=== PATIENT | female | born 1995 | race Caucasian/White ===

== ENCOUNTER 2016-12-07 08:07 | Emergency (ER) | payer OTHER ==
--- NOTE | 2016-12-07 09:20 | ED ---
Abdominal Pain/Female - HPI Summary HPI Summary: Patient presents with abdominal pain she awoke with this morning. She was well yesterday. This morning her pain was in the RLQ and around the belly button. Her appetite is suppressed and she denies nausea. She has a history of ovarian torsion two years ago. She has her appendix. She denies fever, N/V/D or back pain. - History of Current Complaint Chief Complaint: EDAbdPain Stated Complaint: LOWER RT ABD PAIN Time Seen by Provider: 12/07/16 08:34 Hx Obtained From: Patient ?: No Onset/Duration: Gradual Onset Timing: Constant Severity Initially: Moderate Severity Currently: Moderate Pain Intensity: 4 Location: Discrete At: RLQ Radiates: No Character: Sharp Aggravating Factor(s): Movement Alleviating Factor(s): Nothing Associated Signs and Symptoms: Positive: Constipation, Decreased Appetite Allergies/Adverse Reactions: Allergies Allergy/AdvReac Type Severity Reaction Status Date / Time No Known Allergies Allergy Verified 03/15/16 09:51 PMH/Surg Hx/FS Hx/Imm Hx Endocrine/Hematology History: Denies: Hx Diabetes Cardiovascular History: Denies: Hx Hypertension, Hx Pacemaker/ICD Respiratory History: Denies: Hx Asthma History: Reports: Other Problems/Disorders - Hx ovarian torsion Sensory History: Denies: Hx Hearing Aid Psychiatric History: Denies: Hx Panic Disorder - Surgical History Surgery Procedure, Year, and Place: WISDOM TEETH,OVARIAN CYST AND TORSION REPAIR OV [facility] Infectious Disease History: No Infectious Disease History: Denies: Traveled Outside the [place] in Last 30 Days - Family History Known Family History: Positive: None - Social History Occupation: 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 Negative: Vomiting, Diarrhea, Nausea Positive: no symptoms reported All Other Systems Reviewed And Are Negative: Yes Physical Exam Triage Information Reviewed: Yes Vital Signs On Initial Exam: Initial Vitals Temp Pulse Resp BP Pulse Ox 97.3 F 74 20 130/77 100 12/07/16 08:11 12/07/16 08:11 12/07/16 08:11 12/07/16 08:11 12/07/16 08:11 Vital Signs Reviewed: Yes Appearance: Positive: Well-Appearing, Well-Nourished, Pain Distress Skin: Positive: Warm, Skin Color Reflects Adequate Perfusion, Dry, Soft Head/Face: Positive: Normal Head/Face Inspection Eyes: Positive: EOMI, RASHEL, Conjunctiva Clear ENT: Positive: Hearing grossly normal Neck: Positive: Supple, Nontender, No Lymphadenopathy Respiratory/Lung Sounds: Positive: Clear to Auscultation, Breath Sounds Present Cardiovascular: Positive: RRR Abdomen Description: Positive: Soft, Guarding, McBurney's Point Tenderness. Negative: Nontender - TTP RLQ and periumbilical region, CVA Tenderness (R), CVA Tenderness (L), Distended Bowel Sounds: Positive: Hypoactive Musculoskeletal: Negative: Edema Left, Edema Right Neurological: Positive: Sensory/Motor Intact, Alert, Oriented to Person Place, Time, NV Bundle Intact Distally Psychiatric: Positive: Affect/Mood Appropriate AVPU Assessment: Alert Diagnostics - Vital Signs Vital Signs Temp Pulse Resp BP Pulse Ox 12/07/16 08:12 97.8 F 85 20 130/77 100 12/07/16 08:11 97.3 F 74 20 130/77 100 - Laboratory Result Diagrams: 12/07/16 09:12 12/07/16 09:12 Lab Statement: Any lab studies that have been ordered have been reviewed, and results considered in the medical decision making process. - Ultrasound No standard instances Ultrasound Interpretation: No Acute Changes Ultrasound Interpretation Completed By: Radiologist Abdominal Pain Fem Course/Dx - Diagnoses Differential Diagnosis: Positive: Appendicitis, Bowel Obstruction, Constipation , Ectopic , Ovarian Cyst, , Urinary Tract Infection Provider Diagnoses: Abdominal pain Discharge - Discharge Plan Condition: Stable Disposition: HOME Patient Education Materials: Abdominal Pain (ED) Referrals: Zoey Patel DO [Primary Care Provider] - Additional Instructions: Please continue to monitor yourself for symptoms. Return to the emergency department if symptoms worsen.
[2016-12-07 09:22] LABS: Hematocrit 37 % (35-47); Mean Corpuscular HGB Conc 33 g/dl (31-36); Mean Corpuscular Hemoglobin 27 pg (27-31); Mean Corpuscular Volume 82 fL (80-97); Mean Platelet Volume 8 um3 (7.4-10.4); Red Blood Count 4.47 10^6/ul (4.0-5.4); Red Cell Distribution Width 13 % (10.5-15)
[2016-12-07 09:24] LABS: Urine Bilirubin Negative (Negative); Urine Glucose Negative (Negative); Urine Nitrite Negative (Negative)
[2016-12-07 09:44] LABS: ALT 14 U/L (7-52); AST 17 U/L (13-39); Albumin 4.1 g/dL (3.2-5.2); Alkaline Phosphatase 60 U/L (34-104); Amylase 61 U/L (29-103); Anion Gap 6 mmol/L (2-11); BUN/Creatinine Ratio 16.9 (8-20); Blood Urea Nitrogen 11 mg/dL (6-24); C Reactive Protein < 1.00 mg/L (< 5.00); CO2 Carbon Dioxide 25 mmol/L (22-32); Chloride 106 mmol/L (101-111); EGFR African American 149.4 (>60); EGFR Non-African American 116.2 (>60); Globulin 2.7 g/dL (2-4); Glucose 88 mg/dL (70-100); Lipase 23 U/L (11.0-82.0); Potassium 3.5 mmol/L (3.5-5.0); Sodium 137 mmol/L (133-145); Total Protein 6.8 g/dL (6.4-8.9)
--- NOTE | 2016-12-07 09:59 | RAD ---
INDICATION: Right lower quadrant pain COMPARISON: Similar examination dated May 29, 2016 that demonstrated 2 large cystic structures in the right ovary. TECHNIQUE: Real-time transabdominal and transvaginal ultrasound examination of the female pelvis including grayscale and Doppler color flow imaging. FINDINGS: Uterus: The uterus is normal in size and echogenicity measuring 7.8 x 2.9 x 4.5 cm. The endometrial stripe is smooth and uniform measuring 8 mm in thickness. Ovaries: The right and left ovary measure 3.6 x 2.8 x 3.1 cm and 4.0 x 2.7 x 4.3 cm, respectively. Normal arterial and venous waveforms are identified. Within the left ovary there is a large anechoic and avascular cystic structure measuring 6.7 cm in greatest dimension. There is no free fluid in the cul-de-sac. IMPRESSION: Large left ovarian cyst measuring up to 6.7 cm in diameter that is likely a large ovarian follicle in a woman of this age. The patient had similar findings at the right ovary on her May 29, 2016 pelvic sonogram that have since resolved.
[2016-12-07 10:37] VITALS: BP 127/79
== END 2016-12-07 10:30 | disposition home or self-care (01) ==
LOC: ED 08:07
DX: R10.31 Right lower quadrant pain (principal); N83.202 Unspecified ovarian cyst, left side; F12.90 Cannabis use, unspecified, uncomplicated
CPT/HCPCS: 36415; 76830; 80053; 81003; 82150; 83690; 85025; 86140; 99283

== ENCOUNTER 2017-07-27 14:39 | Emergency (ER) | payer OTHER ==
--- OUTSIDE RECORDS SUMMARY | 2017-07-27 15:14 | XMS REPORT ---
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 1 older brother has a history of substance abuse, and recently out of rehab. Social History Type Date Description Comments Marital Status Single Lives With Roommate Occupation Student Cigarette Use Never Smoked Cigarettes ETOH Use Occasionally consumes alcohol Smoking Patient has never smoked Recreational Drug Use Denies Drug Use Daily Caffeine Consumes on average 1 cup of green tea every other day hot tea per day Exercise Type/Frequency Exercises regularly run twice weekly, and weight lifting Allergies, Adverse Reactions, Alerts Date Description Reaction Status Severity Comments 06/19/2017 NKDA active Medications Medication Date Status Form Strength Qnty SIG Indications Ordering Provider Nuvaring Active Ring 0.12-0.015 insert 1 Unknown 000 mg/24HR ring vaginally every [address] for 3 weeks , remove and replace with a new ring after a 7 day break Vitamin D Active Tablets 1000Unit 1 every day Unknown (Cholecalcife 000 rol) Vitamin B12 Active Tablets ER 1000mcg 1 by mouth Unknown 000 every day Vital Signs Date Vital Result Comment 07/09/2017 Height 67.75 inches 5'7.75" Heart Rate 70 /min BP Systolic Sitting 118 mmHg lue reg cuff BP Diastolic Sitting 82 mmHg lue reg cuff Respiratory Rate 18 /min Ejection Fraction no echo/ss Results Description No Information Procedures Description No Information Plan of Care 07/09/2017 - Rich Deisr M.D.Q27.31 Arteriovenous malformation of vessel of upper limbNew Labs:Basic Metabolic PanelNew Xrays:Angio Extremity UnilateralComments:The following was discussed with Vanna at the time of consultation: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 The recent MRI does not clearly depict what, if any, branch arteries are directly communicating with the veins or the palpable nidus she presents with.As I discussed with Vanna, the definitive means of carefully evaluating the right upper extremity vasculature is with arteriography. This will clearly delineate the arterial supply to the right upper extremity and likely reveal any large branch arteries that are communicated directly with the superficial veins or the likely subcutaneous hemangiomas that she currently presents with.The results of the arteriogram will determine the appropriate therapy which could include coil embolization of the feeding branch artery, either endovascular or percutaneous embolization of the subcutaneous hemangiomas and varicose veins or , less likely, surgical correction.The patient is from [place], approximately [place] minutes from [place], and therefore I mentioned to her Dr. Shanika Moore at [facility]. Dr. Moore has extensive experience with vascular malformation correction asthe director of [facility]'s HHT (hereditary hemorrhagic telangiectasia) Center.
[2017-07-27] MEDS ORDERED: Dexamethasone IV* 4 MG/ML 1 ML (4 MG) IV SLOW PU ONE (15:31)
[2017-07-27] MEDS ORDERED: Clindamycin 900 MG IVPREMIX(* 900 MG/50 ML SDV IV ONE (15:37)
[2017-07-27] MEDS ORDERED: Ketorolac INJ* 30 MG/ML 1 ML VIAL IV PUSH ONE (15:38)
--- NOTE | 2017-07-27 15:49 | ED ---
Throat Pain/Nasal Congestion - HPI Summary HPI Summary: Patient is an otherwise healthy 21-year-old female who presents to the ED with chief complaint of bilateral tonsillar swelling, odynophagia, dysphagia, dyspnea and difficulty swallowing secretions 3 days. She states symptoms have started on Friday night, but have worsened in the last 3 days. She was able to call her PCP who referred her to the emergency room for evaluation. History of strep throat as early as last year. Strep swab obtained at [facility] and negative. She endorses bilateral white and black tonsillar exudates. She is tearful on exam due to her shortness of breath and pain. She has been trying to take Tylenol without relief. Continues to drink okay, but has not been eating well due to the pain and swelling. She denies any significant health history. Endorses travel as early as last month to [facility], but has felt at baseline since her travels. She denies any fevers, sweats, chills. She also feels her eyes hurt and are swollen. - History of Current Complaint Chief Complaint: EDThroatPain Time Seen by Provider: 07/27/17 15:32 Hx Obtained From: Patient Onset/Duration: Sudden Onset Severity: Severe Associated Signs And Symptoms: Positive: Dysphagia. Negative: Drooling, Hoarseness, Sinus Discomfort, Nasal Discharge - Epiglottits Risk Factors Epiglottis Risk Factors: Muffled Voice - Allergies/Home Medications Allergies/Adverse Reactions: Allergies Allergy/AdvReac Type Severity Reaction Status Date / Time No Known Allergies Allergy Verified 07/27/17 15:02 PMH/Surg Hx/FS Hx/Imm Hx Previously Healthy: Yes Endocrine/Hematology History: Denies: Hx Diabetes Cardiovascular History: Denies: Hx Hypertension, Hx Pacemaker/ICD Respiratory History: Denies: Hx Asthma History: Reports: Other Problems/Disorders - Hx ovarian torsion Sensory History: Denies: Hx Hearing Aid Psychiatric History: Denies: Hx Panic Disorder - Surgical History Surgery Procedure, Year, and Place: OVARIAN CYST REMOVAL BILATERALLY,WISDOM TEETH - Immunization History Hx Pertussis Vaccination: No Immunizations Up to Date: Unable to Obtain/Confirm Infectious Disease History: No Infectious Disease History: Denies: Traveled Outside the [place] in Last 30 Days - Family History Known Family History: Positive: None - Social History Occupation: Student Lives: With Family Alcohol Use: Occasionally Hx Substance Use: Yes Substance Use Type: Reports: Marijuana Substance Use Comment - Amount & Last Used: occasional Hx Tobacco Use: No Smoking Status (MU): Never Smoked Tobacco Review of Systems - ROS Summary Review of Systems Summary: Constitutional: The patient denies fever, CLEANING, sweats or chills. HEENT: Head: The patient denies headaches or dizziness. Eyes: The patient denies diplopia, blurry vision, eye pain, or photophobia. Endorses slight tearing and feels there is swelling under her eyes. Throat: The patient endorses bilateral and posterior pharyngeal and tonsillar pain. White and black exudates. Cardiovascular: The patient denies chest pain, palpitations, syncope, night cramps, or orthostasis. Respiratory: The patient denies cough, sputum production, hemoptysis, wheezing. Endorses dyspnea. Gastrointestinal: The patient denies odynophagia, dysphagia, hematemesis, melenemesis. Denies abdominal pain, nausea or vomiting. Denies constipation or diarrhea. Genitourinary: Patient denies dysuria, hematuria, or pyuria. Patient denies back pain. Denies vaginal discharge, vaginal bleeding. Denies other urinary symptoms. Muscles: The patient denies myalgia, strain or weakness. Joints: The patient denies arthralgia and/or arthritis. Neurologic: The patient denies headache. Psych: Endorses some anxiety related to dyspnea.. Constitutional: Negative Negative: Fever, Chills, Fatigue Positive: Sore Throat, Other - bilateral lymphadenopathy Cardiovascular: Negative Respiratory: Negative Positive: no symptoms reported, see HPI Musculoskeletal: Negative Neurological: Negative Positive: Anxious All Other Systems Reviewed And Are Negative: Yes Physical Exam - Summary Physical Exam Summary: Appearance: WDW, comfortable, pleasant, alert Skin: Soft dry skin, no lesions. Nailbeds pink with no cyanosis or clubbing. No petechia noted. Eyes: RASHEL, EOMI, Conjunctiva pink with no redness or exudates. Small amount of periorbital swelling to the bilateral eyes. Throat: There is bilateral tonsillar exudates, both black and white. Enlarged tonsils +3 bilaterally. Uvula midline. Airway patent. Mouth: Dentition without lesions. Dry mucosa Neck: Full range of motion. Palpable thyroid. Trachea at midline. Cervical lymphadenopathy. Pulm: Chest symmetrical expansion. No deformities on posterior chest wall. Lungs clear to auscultation and percussion, without adventitious sounds. CV: No JVD. No deformities on anterior chest wall. Heart sounds. RRR. Normal S1 and single S2. No S3, S4, rubs, or murmurs. Carotids 2+ bilaterally without bruits. . exam not performed GI: Bowel sounds WNL in all 4 quadrants. No pain on deep palpation of all 4 quadrants. Negative bonilla's, negative obturator. Psoas not performed. No pain over Mcburney's point. Musculoskeletal: Flexion and extension of neck without limitations. ROM WNL in all extremities. No deformities noted. Pulses +2 bilaterally. Neuro: Motor strength is 5/5 in upper and lower extremities bilaterally. A&OX3 Psych: Logical, coherent Triage Information Reviewed: Yes Vital Signs On Initial Exam: Initial Vitals Temp Pulse Resp BP Pulse Ox 98.2 F 119 20 134/83 100 07/27/17 14:57 07/27/17 14:57 07/27/17 14:57 07/27/17 14:57 07/27/17 14:57 Vital Signs Reviewed: Yes Appearance: Positive: Well-Appearing, Well-Nourished Skin: Positive: Warm, Skin Color Reflects Adequate Perfusion Head/Face: Positive: Normal Head/Face Inspection Eyes: Positive: EOMI, RASHEL, Other: - Small amount of periorbital swelling, without erythema or concern for periorbital cellulitis ENT: Positive: Hearing grossly normal, Pharyngeal erythema, TMs normal, Tonsillar swelling, Tonsillar exudate, Muffled voice, Uvula midline. Negative: Nasal congestion, Nasal drainage, Trismus, Hoarse voice, Dental tenderness, Sinus tenderness Neck: Positive: Supple, Tenderness @ - Cervical anterior, Enlarged Nodes @ - Cervical anterior, Other: - Tenderness throughout lymph nodes, without tenderness to the neck. Negative: Nontender, Nuchal Rigidity Cardiovascular: Positive: Normal, RRR Musculoskeletal: Positive: Normal, Strength/ROM Intact Psychiatric: Positive: Anxious - Anxious regarding her current state AVPU Assessment: Alert Diagnostics - Vital Signs Vital Signs Temp Pulse Resp BP Pulse Ox 07/27/17 14:57 98.2 F 119 20 134/83 100 - Laboratory Result Diagrams: 07/27/17 16:06 07/27/17 16:06 Lab Statement: Any lab studies that have been ordered have been reviewed, and results considered in the medical decision making process. EENT Course/Dx - Course Course Of Treatment: During the course of treatment, the patient is evaluated for throat pain. On physical exam there is noted to be tonsillitis with white and black exudates and pharyngeal erythema. Tonsils are enlarged at +3. She maintains her saliva secretions, but is having difficulty swallowing food. Uvula is midline. No signs of peritonsillar abscess. On arrival she appears anxious but is not drooling or posturing. She has somewhat of a muffled or a hot potato voice. Denies trismus. The pain is bilateral and uvula is midline for less concern for peritonsillar. There is no signs of a deep space neck infection, or abscess in the parapharyngeal space. There is no bulging behind the posterior tonsillar pillar. It appears this may be severe tonsillopharyngitis with bilateral tonsillar swelling and exudate. cervical lymphadenopathy bilateral is noted. Likely this pathogen is caused by mononucleosis from EBV, but until cultures are back we'll treat for bacterial component as well. Monoscreen negative. Reactive lymphs elevated. She is given clindamycin, prednisone. She is OK with plan and discharge and feels improved on discharge. She is given strict return precautions. - Diagnoses Provider Diagnoses: Acute tonsillitis Discharge - Discharge Plan Condition: Fair Disposition: HOME Prescriptions: Clindamycin Cap(NF) [Clindamycin Cap 300 mg Cap(NF)] 300 mg PO Q6H #28 cap predniSONE TAB* [Deltasone TAB*] 50 mg PO DAILY #6 tab Patient Education Materials: Tonsillitis (ED) Referrals: Zoey Patel DO [Primary Care Provider] - Additional Instructions: Please follow up with ENT for any worsening symptoms Prednisone 50 mg once daily 6 days Clindamycin 300 mg 4 times daily 7 days If you develop symptoms as in your not swallowing her secretions or having any difficulty breathing, return to the ED immediately Cepacol tabs, [id number] will help with any pain Tylenol 650 mg 3 times daily for discomfort
[2017-07-27] MEDS ORDERED: D5NS 0.9% 1000 ML BAG* 1,000 ML IV SCH (16:00)
[2017-07-27 16:20] LABS: Hematocrit 39 % (35-47); Hemoglobin 12.7 g/dl (12.0-16.0); Mean Corpuscular HGB Conc 33 g/dl (31-36); Mean Corpuscular Hemoglobin 26 pg (27-31); Mean Corpuscular Volume 81 fL (80-97); Mean Platelet Volume 8 um3 (7.4-10.4); Platelet Count 207 10^3/ul (150-450); Red Blood Count 4.81 10^6/ul (4.0-5.4); Red Cell Distribution Width 15 % (10.5-15); White Blood Count 9.4 10^3/ul (3.5-10.8)
[2017-07-27 16:31] LABS: EGFR Non-African American 129.9 (>60)
[2017-07-27 16:49] LABS: Monocytes % 9 % (0-13)
[2017-07-27 18:15] VITALS: BP 119/74
== END 2017-07-27 18:13 | disposition home or self-care (01) ==
LOC: ED 14:39
DX: J03.90 Acute tonsillitis, unspecified (principal)
CPT/HCPCS: 36415; 80053; 83605; 85025; 85060; 85652; 86140; 86308; 96374; 96375; 99281; J1100; J1885

== ENCOUNTER 2017-11-01 01:37 | Emergency (ER) | payer OTHER ==
[2017-11-01 02:30] LABS: ABS Basophils 0 10^3/ul (0-0.2); ABS Eosinophils 0.1 10^3/ul (0-0.6); ABS Lymphocytes 3.5 10^3/ul (1.0-4.8); ABS Monocytes 0.8 10^3/ul (0-0.8); ABS Neutrophils 3.3 10^3/ul (1.5-7.7); ABS Nucleated RBC 0 10^3/ul; Eosinophil % 1.6 % (0-6); Hematocrit 33 % (35-47); Hemoglobin 10.6 g/dl (12.0-16.0); Lymphocyte % 45.2 % (25-47); Mean Corpuscular HGB Conc 32 g/dl (31-36); Mean Corpuscular Hemoglobin 26 pg (27-31); Mean Corpuscular Volume 80 fL (80-97); Mean Platelet Volume 7.5 um3 (7.4-10.4); Nucleated Red Blood Cells % 0.1; Platelet Count 324 10^3/ul (150-450); Red Blood Count 4.12 10^6/ul (4.0-5.4); Red Cell Distribution Width 15 % (10.5-15); White Blood Count 7.8 10^3/ul (3.5-10.8)
[2017-11-01 02:48] LABS: EGFR Non-African American 131.2 (>60)
[2017-11-01 02:51] LABS: Urine Appearance Cloudy; Urine Blood 3+ (Negative); Urine Color Yellow; Urine Ketones Negative (Negative); Urine Protein Negative (Negative); Urine Specific Gravity 1.024 (1.010-1.030); Urine Urobilinogen Negative (Negative)
[2017-11-01] MEDS ORDERED: NS 0.9% 1000 ML* 1,000 ML IV ONE (03:06)
[2017-11-01] MEDS ORDERED: Ketorolac INJ* 30 MG/ML 1 ML VIAL IV PUSH ONE (03:06)
[2017-11-01] MEDS ORDERED: Iohexol 300* (CONTRAST) 10 ML SDV IV ONE (03:52)
[2017-11-01 06:00] VITALS: BP 115/66
--- NOTE | 2017-11-01 06:48 | ED ---
Sam Viera Jennifer, scribed for Librado Logan MD on 11/01/17 at 0226 . Abdominal Pain/Female - HPI Summary HPI Summary: The patient is a 22 year old female who presents with diffuse abdominal pain that began at 18:00 last night. She explains that it felt like her upper abdomen began to feel very full. The patient reports she has a history of ovarian cyst and torsion, but this pain feels different and higher up. She describes it as a sharp pain. The patient additionally complains of constipation. Her last bowel movement was this morning. She denies vomiting, diarrhea, fever, and vaginal discharge. - History of Current Complaint Chief Complaint: EDAbdPain Stated Complaint: ABD PAIN Time Seen by Provider: 11/01/17 02:01 Hx Obtained From: Patient Onset/Duration: Sudden Onset, Lasting Hours - 8 hours, Still Present Timing: Constant Severity Initially: Moderate Severity Currently: Moderate Pain Intensity: 6 Pain Scale Used: 0-10 Numeric Location: Diffuse Radiates: No Character: Sharp Aggravating Factor(s): Nothing Alleviating Factor(s): Nothing Associated Signs and Symptoms: Positive: Other: - abdominal pain, constipation. NEGATIVE: vomiting, diarrhea, fever, discharge Allergies/Adverse Reactions: Allergies Allergy/AdvReac Type Severity Reaction Status Date / Time No Known Allergies Allergy Verified 11/01/17 01:42 Home Medications: Home Medications NK [No Home Medications Reported] 11/01/17 [History Confirmed 11/01/17] PMH/Surg Hx/FS Hx/Imm Hx Endocrine/Hematology History: Denies: Hx Diabetes Cardiovascular History: Denies: Hx Hypertension, Hx Pacemaker/ICD Respiratory History: Denies: Hx Asthma History: Reports: Other Problems/Disorders - Hx ovarian torsion Sensory History: Denies: Hx Hearing Aid Psychiatric History: Denies: Hx Panic Disorder - Surgical History Surgery Procedure, Year, and Place: OVARIAN CYST REMOVAL BILATERALLY,WISDOM TEETH Infectious Disease History: No Infectious Disease History: Denies: Traveled Outside the [place] in Last 30 Days - Family History Known Family History: Negative: Cardiac Disease, Hypertension, Diabetes - Social History Alcohol Use: Occasionally Hx Substance Use: Yes Substance Use Type: Reports: Marijuana Substance Use Comment - Amount & Last Used: occasional Hx Tobacco Use: No Smoking Status (MU): Never Smoked Tobacco Review of Systems Negative: Fever Positive: Abdominal Pain, Other - Constipation. Negative: Vomiting, Diarrhea Negative: discharge All Other Systems Reviewed And Are Negative: Yes Physical Exam - Summary Physical Exam Summary: GENERAL: ~Patient is a well developed and nourished F who is lying comfortable in the stretcher. ~Patient is not in any acute respiratory distress. HEAD AND FACE: Normocephalic EYES: PERRLA, EOMI x 2. EARS: Hearing grossly intact. MOUTH: Oropharynx within normal limits. NECK: Supple, trachea is midline, no adenopathy, no JVD, no carotid bruit. CHEST: Symmetric, no tenderness at palpation LUNGS: Clear to auscultation bilaterally. No wheezing or crackles. CVS: Regular rate and rhythm, S1 and S2 present, no murmurs or gallops appreciated. ABDOMEN: Soft, tender to palpation in right lower and right middle abdomen. Bowel sounds are normal. No abdominal abnormal pulsations. EXTREMITIES: Full ROM in all major joints, no edema, no cyanosis or clubbing. NEURO: Alert and oriented x 3. No acute neurological deficits. Speech is normal and follows commands. SKIN: Dry and warm Triage Information Reviewed: Yes Vital Signs On Initial Exam: Initial Vitals Temp Pulse Resp BP Pulse Ox 97.9 F 86 16 129/82 99 11/01/17 01:38 11/01/17 01:38 11/01/17 01:38 11/01/17 01:38 11/01/17 01:38 Vital Signs Reviewed: Yes Diagnostics - Vital Signs Vital Signs Temp Pulse Resp BP Pulse Ox 11/01/17 01:38 97.9 F 86 16 129/82 99 - Laboratory Lab Results: Lab Results 11/01/17 11/01/17 11/01/17 Range/Units 02:14 02:21 02:21 WBC 7.8 (3.5-10.8) 10^3/ul RBC 4.12 (4.0-5.4) 10^6/ul Hgb 10.6 L (12.0-16.0) g/dl Hct 33 L (35-47) % MCV 80 (80-97) fL MCH 26 L (27-31) pg MCHC 32 (31-36) g/dl RDW 15 (10.5-15) % Plt Count 324 (150-450) 10^3/ul MPV 7.5 (7.4-10.4) um3 Neut % (Auto) 42.0 (38-83) % Lymph % (Auto) 45.2 (25-47) % [place] % (Auto) 10.7 H (0-7) % Eos % (Auto) 1.6 (0-6) % Baso % (Auto) 0.5 (0-2) % Absolute Neuts (auto) 3.3 (1.5-7.7) 10^3/ul Absolute Lymphs (auto) 3.5 (1.0-4.8) 10^3/ul Absolute Monos (auto) 0.8 (0-0.8) 10^3/ul Absolute Eos (auto) 0.1 (0-0.6) 10^3/ul Absolute Basos (auto) 0 (0-0.2) 10^3/ul Absolute Nucleated RBC 0 10^3/ul Nucleated RBC % 0.1 Sodium 136 L (139-145) mmol/L Potassium 3.3 L (3.5-5.0) mmol/L Chloride 106 (101-111) mmol/L Carbon Dioxide 22 (22-32) mmol/L Anion Gap 8 (2-11) mmol/L BUN 10 (6-24) mg/dL Creatinine 0.58 (0.51-0.95) mg/dL Est GFR ( Amer) 168.8 (>60) Est GFR (Non-Af Amer) 131.2 (>60) BUN/Creatinine Ratio 17.2 (8-20) Glucose 109 H (70-100) mg/dL Lactic Acid (0.5-2.0) mmol/L Calcium 8.6 (8.6-10.3) mg/dL Total Bilirubin 0.20 (0.2-1.0) mg/dL AST 15 (13-39) U/L ALT 11 (7-52) U/L Alkaline Phosphatase 50 (34-104) U/L C-Reactive Protein 2.03 (< 5.00) mg/L Total Protein 6.0 L (6.4-8.9) g/dL Albumin 3.6 (3.2-5.2) g/dL Globulin 2.4 (2-4) g/dL Albumin/Globulin Ratio 1.5 (1-3) Lipase 43 (11.0-82.0) U/L Beta HCG, Quant < 0.60 mIU/mL Urine Color Yellow Urine Appearance Cloudy Urine pH 6.0 (5-9) Ur Specific [place] 1.024 (1.010-1.030) Urine Protein Negative (Negative) Urine Ketones Negative (Negative) Urine Blood 3+ A (Negative) Urine Nitrate Negative (Negative) Urine Bilirubin Negative (Negative) Urine Urobilinogen Negative (Negative) Ur Leukocyte Esterase Negative (Negative) Urine WBC (Auto) Trace(0-5/hpf) (Absent) Urine RBC (Auto) 3+(>10/hpf) A (Absent) Ur Squamous Epith Cells Present A (Absent) Urine Bacteria Absent (Absent) Urine Glucose Negative (Negative) 11/01/17 Range/Units 02:21 WBC (3.5-10.8) 10^3/ul RBC (4.0-5.4) 10^6/ul Hgb (12.0-16.0) g/dl Hct (35-47) % MCV (80-97) fL MCH (27-31) pg MCHC (31-36) g/dl RDW (10.5-15) % Plt Count (150-450) 10^3/ul MPV (7.4-10.4) um3 Neut % (Auto) (38-83) % Lymph % (Auto) (25-47) % [place] % (Auto) (0-7) % Eos % (Auto) (0-6) % Baso % (Auto) (0-2) % Absolute Neuts (auto) (1.5-7.7) 10^3/ul Absolute Lymphs (auto) (1.0-4.8) 10^3/ul Absolute Monos (auto) (0-0.8) 10^3/ul Absolute Eos (auto) (0-0.6) 10^3/ul Absolute Basos (auto) (0-0.2) 10^3/ul Absolute Nucleated RBC 10^3/ul Nucleated RBC % Sodium (139-145) mmol/L Potassium (3.5-5.0) mmol/L Chloride (101-111) mmol/L Carbon Dioxide (22-32) mmol/L Anion Gap (2-11) mmol/L BUN (6-24) mg/dL Creatinine (0.51-0.95) mg/dL Est GFR ( Amer) (>60) Est GFR (Non-Af Amer) (>60) BUN/Creatinine Ratio (8-20) Glucose (70-100) mg/dL Lactic Acid 1.0 (0.5-2.0) mmol/L Calcium (8.6-10.3) mg/dL Total Bilirubin (0.2-1.0) mg/dL AST (13-39) U/L ALT (7-52) U/L Alkaline Phosphatase (34-104) U/L C-Reactive Protein (< 5.00) mg/L Total Protein (6.4-8.9) g/dL Albumin (3.2-5.2) g/dL Globulin (2-4) g/dL Albumin/Globulin Ratio (1-3) Lipase (11.0-82.0) U/L Beta HCG, Quant mIU/mL Urine Color Urine Appearance Urine pH (5-9) Ur Specific [place] (1.010-1.030) Urine Protein (Negative) Urine Ketones (Negative) Urine Blood (Negative) Urine Nitrate (Negative) Urine Bilirubin (Negative) Urine Urobilinogen (Negative) Ur Leukocyte Esterase (Negative) Urine WBC (Auto) (Absent) Urine RBC (Auto) (Absent) Ur Squamous Epith Cells (Absent) Urine Bacteria (Absent) Urine Glucose (Negative) Result Diagrams: 11/01/17 02:21 11/01/17 02:21 Lab Statement: Any lab studies that have been ordered have been reviewed, and results considered in the medical decision making process. - CT CT Abd/Pel CT Interpretation: Positive (See Comments) - Cystic mass in the right adnexa is likely ovarian in origin. Correlation with history and pelvic exam is recommended. Pelvic ultrasound would be helpful for further evaluation. Nodular density in the left adnexa is likely related to the left ovary. Dr. Logan has reviewed this report. CT Interpretation Completed By: Radiologist - Additional Comments Diagnostic Additional Comments: Pelvic US. Interpreted by a radiologist. IMPRESSION: 6.7cm paraovarian cyst with no torsion. Dr. Logan has reviewed this report. Abdominal Pain Fem Course/Dx - Course Course Of Treatment: The patient is a 22 year old female who presents to the ED with diffuse abdominal pain that began at 18:[address] Abd/Pel is remarkable for a cystic mass seen on the right ovary. US Pelvic showed no torsion. I discussed the results with pt. She reports feeling better. The patient will be discharged and instructed to follow up with TESSIE. - Diagnoses Provider Diagnoses: Ovarian cyst Discharge - Sign-Out/Discharge Documenting (check all that apply): Discharge/Admit/Transfer - Discharge Plan Condition: Stable Disposition: HOME Patient Education Materials: Ovarian Cyst (ED) Referrals: Zoey Patel DO [Primary Care Provider] - Humza Messina MD [Medical Doctor] - Additional Instructions: Follow up with Dr. Messina (OBGYN) or your OBGYN in three days. Return to the emergency department for any new or worsening symptoms. - Billing Disposition and Condition Condition: STABLE Disposition: HOME The documentation as recorded by the Sam pires Jennifer accurately reflects the service I personally performed and the decisions made by me, Librado Logan MD.
--- NOTE | 2017-11-01 08:46 | RAD ---
Indication: Right lower quadrant pain. Contrast: Administered 95.3 ml of Contrast -- mg/ml CT of the abdomen and pelvis was performed after IV contrast administration. Coronal and sagittal reconstructed images were obtained. The lung bases demonstrate no pleural fluid, nodules or masses. Heart is of normal size without evidence of pericardial. Liver is normal in size. No focal lesions or intrahepatic duct dilatation noted. The spleen is normal in size. The common duct is not dilated. The gallbladder demonstrates no calcified gallstones. No pericholecystic fluid or wall thickening is noted. The pancreas demonstrates no mass or pancreatic ductal dilatation. No adrenal masses are noted. The kidneys demonstrate no hydronephrosis. No retroperitoneal lymphadenopathy is noted. No dilated loops of bowel are noted. CT of the pelvis demonstrates normal appendix. There is a large right adnexal cyst measuring up to 6.7 x 5.5 cm. The left ovary is unremarkable. No hernias are noted. IMPRESSION: Cystic lesion in the right adnexa measuring up to 6left ovary is likely within normal limits. Correlation with pelvic ultrasound is suggested.
--- NOTE | 2017-11-01 08:56 | RAD ---
Indication: Cystic lesion seen on CT. Real-time sonography of the pelvis was performed. Comparison is made with previous exam dated 12/07/2016 and 05/29/2016. The uterus measures at least 8 cm in length x 4.9 cm with x 3.1 cm AP. Endometrial echo measures 8 mm. This is within normal limits. The right ovary measures 3.2 x 3.1 x 2.5 cm. The right ovary is a large cyst measuring 6.8 x 6.7 x 4.8 cm. The left ovary measures 3.6 x 2.8 x 4.3 cm. Doppler interrogation demonstrates flow in both ovaries. There has been a large paraovarian structure since previous exam of May 29, 2016 and the possibility of cystadenoma should BE considered. IMPRESSION: Large right ovarian cyst measuring up to 6.8 x 6.7 x 4.8 cm which has likely been present as far back as May 2016. No torsion is noted. The possibility of a cystadenoma should BE considered.
== END 2017-11-01 06:46 | disposition home or self-care (01) ==
LOC: ED 01:37
DX: N83.209 Unspecified ovarian cyst, unspecified side (principal)
CPT/HCPCS: 36415; 74177; 76830; 76856; 80053; 81003; 81015; 83605; 83690; 84702; 85025; 86140; 87086; 96361; 96374; 99282; J1885; Q9967

== ENCOUNTER → 2018-03-27 06:51 | Day surgery (SDC) | payer OTHER ==
[~2018-03-27 06:51] MED LIST: Heparin 2 UNITS/ML IVPREMIX* 2,000 ML IV ONE; Iohexol 350 (CONTRAST) 200 ML MDV IV ONE; LORazepam TAB(*) 1 MG ONE; Lidocaine 1% INJ* 10 MG/ML 30 ML SDV ONE; Midazolam* 1 MG/ML 10 ML VIAL (10 MG) ONE; Naloxone* 0.4 MG/ML 1 ML VIAL ONE; fentaNYL* 50 MCG/ML 2 ML VIAL (100 MCG VIAL) ONE; fentaNYL* 50 MCG/ML 5 ML VIAL (250 MCG VIAL) ONE
[2018-03-27 07:35] LABS: Hematocrit 35 % (35-47); Hemoglobin 11.3 g/dl (12.0-16.0); Mean Corpuscular HGB Conc 33 g/dl (31-36); Mean Corpuscular Hemoglobin 26 pg (27-31); Mean Corpuscular Volume 80 fL (80-97); Mean Platelet Volume 7.7 um3 (7.4-10.4); Platelet Count 359 10^3/ul (150-450); Red Blood Count 4.32 10^6/ul (4.00-5.40); Red Cell Distribution Width 14 % (10.5-15); White Blood Count 7.2 10^3/ul (3.5-10.8)
[2018-03-27 07:43] LABS: INR 0.86 (0.77-1.02)
[2018-03-27 07:51] LABS: EGFR Non-African American 128.7 (>60)
[2018-03-27 08:05] LABS: ABS Basophils 0 10^3/ul (0-0.2); ABS Eosinophils 0.2 10^3/ul (0-0.6); ABS Monocytes 0.6 10^3/ul (0-0.8); ABS Neutrophils 2.3 10^3/ul (1.5-7.7); ABS Nucleated RBC 0 10^3/ul; Eosinophil % 2.7 % (0-6); Lymphocyte % 56.3 % (25-47); Nucleated Red Blood Cells % 0.3
[2018-03-27 12:42] VITALS: BP 119/71
--- NOTE | 2018-03-27 14:40 | PN ---
Progress Note - Progress Note Date of Service: 03/27/18 SOAP: Subjective: Mild pain at palmar surface of right middle finger proximal phalanx. No pain anywhere else. No paresthesia. Objective: Selected Entries 03/27/18 12:40 Pulse Rate 78 Heart Rate 75 Respiratory 17 Rate Blood Pressure 119/71 (mmHg) Blood Pressure 87 Mean O2 Sat by Pulse 96 Oximetry NAD, AAO x 3 Abd is soft, nontender Right groin is soft, nontender Dressing is CDI 2+ pulses palpated at right brachial, radial and ulnar arteries. 2+ pulses at right [employer] and pedal pulses. RUE is neuromuscular intact. Examination of middle finger shows mild erythema, no swelling, no discoloration Right middle finger exhibits <2 cap refill Assessment: 22 yof status thoracic and RUE arteriogram to investigate direct arterial inflow into RUE AVMs. Nonspecific mild pain at tenorio proximal right middle finger may be due to positioning on armboard. Plan: 1. Okay for discharge to home. 2. Patient provided contact information for Interventional Radiology clinic and my cell phone for any issues. 3. IR clinic nurse will inquirea about right middle finger during Friday, routine follow up call.
== END | disposition home or self-care (01) ==
LOC: CHICATH 06:51
PROVIDERS: ATTEND Radiology Diagnostic Radiology
DX: Q27.31 Arteriovenous malformation of vessel of upper limb (principal); M25.521 Pain in right elbow; I86.8 Varicose veins of other specified sites; E61.1 Iron deficiency; E55.9 Vitamin D deficiency, unspecified
CPT/HCPCS: 36415; 76937; 80048; 84702; 85025; 85610; 85730; 93567; 99156; 99157; A9270-GY; C1769; C1887; J1644; J2250; J2310; J3010

== ENCOUNTER 2018-03-28 01:17 | Emergency (ER) | payer OTHER ==
--- NOTE | 2018-03-28 01:57 | ED ---
Lower Extremity - HPI Summary HPI Summary: The patient is a 22 y/o F presenting to [facility] with a chief complaint of intermittent pain the back of her right knee starting since she left the hospital a few days ago. She fell three weeks ago and has since had pain in her leg. She additionally has been having numbness in her feet and fingertips. There is no swelling associated. The pain is currently rated 3/10 in severity. She uses Nuvaring control. - History of Current Complaint Chief Complaint: EDExtremityLower Stated Complaint: RT LEG PAIN Time Seen by Provider: 03/28/18 01:47 Hx Obtained From: Patient Mechanism Of Injury: Fall From A Standing Position - fell on right leg three weeks ago Onset of Pain: Post Accident Onset/Duration: Still Present Pain Intensity: 3 Pain Scale Used: 0-10 Numeric Timing: Intermittent Location: Is Discrete @ - back of right knee Associated Signs And Symptoms: Positive: Other - numbness in feet and fingertips. Negative: Swelling Aggravating Factor(s): Nothing Alleviating Factor(s): Nothing Able to Bear Weight: Yes - Allergies/Home Medications Allergies/Adverse Reactions: Allergies Allergy/AdvReac Type Severity Reaction Status Date / Time No Known Allergies Allergy Verified 03/28/18 01:27 PMH/Surg Hx/FS Hx/Imm Hx Endocrine/Hematology History: Denies: Hx Diabetes Cardiovascular History: Denies: Hx Hypertension, Hx Pacemaker/ICD Respiratory History: Denies: Hx Asthma History: Reports: Other Problems/Disorders - Hx ovarian torsion Sensory History: Denies: Hx Hearing Aid Psychiatric History: Denies: Hx Panic Disorder - Surgical History Surgery Procedure, Year, and Place: OVARIAN CYST REMOVAL BILATERALLY,WISDOM TEETH Infectious Disease History: No Infectious Disease History: Denies: Traveled Outside the [place] in Last 30 Days - Family History Known Family History: Negative: Cardiac Disease, Hypertension, Diabetes - Social History Alcohol Use: Occasionally Hx Substance Use: Yes Substance Use Type: Reports: Marijuana Substance Use Comment - Amount & Last Used: occasional Hx Tobacco Use: No Smoking Status (MU): Never Smoked Tobacco Review of Systems Positive: Other - POSITIVE: pain in back of right knee; NEGATIVE: swelling Positive: Numbness - in feet and fingertips All Other Systems Reviewed And Are Negative: Yes Physical Exam - Summary Physical Exam Summary: Appearance: Well-appearing, Well-nourished, lying in bed comfortable Skin: Warm, dry, no obvious rash Eyes: sclera anicteric, no conjunctival pallor ENT: mucous membranes moist Neck: deferred Respiratory: No signs of respiratory distress Cardiovascular: Appears well perfused, pulses are nml Abdomen: deferred Musculoskeletal: Moving all 4 extremities without obvious discomfort, Right lower extremity has no swelling, no focal tenderness in calf, no color change, good pulses are palpable in the dorsum of the foot Neurological: Awake and alert, mentation is normal, speech is fluent and appropriate Psychiatric: affect is normal, does not appear anxious or depressed Triage Information Reviewed: Yes Vital Signs On Initial Exam: Initial Vitals Temp Pulse Resp BP Pulse Ox 97.0 F 87 16 147/80 99 03/28/18 01:24 03/28/18 01:24 03/28/18 01:24 03/28/18 01:24 03/28/18 01:24 Vital Signs Reviewed: Yes Diagnostics - Vital Signs Vital Signs Temp Pulse Resp BP Pulse Ox 03/28/18 01:24 97.0 F 87 16 147/80 99 - Laboratory Lab Statement: Any lab studies that have been ordered have been reviewed, and results considered in the medical decision making process. Lower Extremity Course/Dx - Diagnoses Provider Diagnoses: Leg pain Discharge - Sign-Out/Discharge Documenting (check all that apply): Patient Departure - Patient will be discharged home. - Discharge Plan Condition: Good Disposition: HOME Patient Education Materials: Leg Pain (ED) Referrals: Zoey Patel DO [Primary Care Provider] - Additional Instructions: I have a very low suspicion that this pain represents anything serious such as a blood clot in the leg, but if the pain does not work itself out by the late morning, or you develop any swelling in the leg, come back to the ED and we will get a venous US test to rule out a blood clot. - Billing Disposition and Condition Condition: GOOD Disposition: Home - Attestation Statements Document Initiated by Summer: Yes Documenting Scribe: Carmelina Vaz Provider For Whom Summer is Documenting (Include Credential): Dr. Earl Wilson MD Scribe Attestation: Carmelina Viera, scribed for Dr. Earl Wilson MD on 03/28/18 at 0310. Scribe Documentation Reviewed: Yes Provider Attestation: The documentation as recorded by the Carmelina pires accurately reflects the service I personally performed and the decisions made by me, Dr. Earl Wilson MD
[2018-03-28 02:16] VITALS: BP 118/70
== END 2018-03-28 02:16 | disposition home or self-care (01) ==
LOC: ED 01:17
DX: M25.561 Pain in right knee (principal)
CPT/HCPCS: 99282

== ENCOUNTER 2018-04-28 15:11 | Emergency (ER) | payer OTHER ==
--- NOTE | 2018-04-28 16:01 | UC ---
Throat Pain/Nasal [place] HPI - HPI Summary HPI Summary: 22 yo female presents with dizziness, generalized "heaviness", and subjective trouble with her speech. She tells me that about 2 hours [employer] she had just eaten a tristen bar and was sitting in class. She had a sudden onset of dizziness, b/l leg weakness, and a feeling of body wide heaviness. She has never had symptoms like this in the past. Her symptoms have persisted prompting her visit to . She also endorses a sore throat that started this morning, but did not think it was significant. She denies recent illness, fever, chills, cough, SOB, chest pain, abdominal pain, n/v, dysuria, or headache. She also mentions that she has a hx of varicose veins to her right arm and underwent an arteriogram 1 month ago for further evaluation of these. - History of Current Complaint Stated Complaint: DIZZINESS Time Seen by Provider: 04/28/18 16:00 Hx Obtained From: Patient Onset/Duration: Sudden Onset - Allergies/Home Medications Allergies/Adverse Reactions: Allergies Allergy/AdvReac Type Severity Reaction Status Date / Time No Known Allergies Allergy Verified 04/28/18 17:21 PMH/Surg Hx/FS Hx/Imm Hx - Additional Past Medical History Additional PMH: None - Surgical History Surgical History: Yes Surgery Procedure, Year, and Place: OVARIAN CYST REMOVAL BILATERALLY,WISDOM TEETH - Family History Known Family History: Negative: Cardiac Disease, Hypertension, Diabetes - Social History Occupation: Student Lives: Dormitory/Roommates Alcohol Use: Occasionally Substance Use Type: Marijuana Substance Use Comment - Amount & Last Used: occasional Smoking Status (MU): Never Smoked Tobacco Review of Systems Constitutional: Negative Skin: Negative Eyes: Negative ENT: Sore Throat Respiratory: Negative Cardiovascular: Negative Gastrointestinal: Negative Genitourinary: Negative Motor: Negative Neurovascular: Negative Musculoskeletal: Negative Neurological: Other - Dizziness Psychological: Negative All Other Systems Reviewed And Are Negative: Yes Physical Exam - Summary Physical Exam Summary: GENERAL: Upper body mildly swaying in all directions during interview and PE. SKIN: No rashes, sores, ulcers, masses, lesions. HEENT: Head: AT/NC Eyes: PERRLA. EOM intact. Conjunctiva clear without inflammation or discharge. Ears: Hearing grossly normal. TMs intact, no bulging, erythema, or edema. Nose: Nasal mucosa pink and moist. NTTP maxillary and frontal sinus. Throat: Posterior oropharynx without exudates, erythema, or tonsillar enlargement. Uvula midline. NECK: Supple. Nontender. No lymphadenopathy. CHEST: CTAB. No r/r/w. No accessory muscle use. Breathing comfortably and in no distress. CV: RRR. Without m/r/g. Pulses intact. Brisk cap refill. ABDOMEN: Soft. NTTP. No distention or guarding. No CVA tenderness. Bowel sounds present MSK: FROM in B/L UEs and LEs with symmetric strength. NEURO: A&Ox3. 3 word recall, remote, recent memory, ability to follow 2-step directions, and attention intact. CN: II: Peripheral fang intact. Vision normal. III, IV, : EOMI. QUESTIONABLE VERTICAL NYSTAGMUS. PERRLA. V: Sensations intact and symmetric. Opens mouth and clenches teeth. VII: No facial asymmetry. Forehead wrinkles. Grins, shuts eyes, frowns, puffs cheeks. VIII: Hearing intact to finger rub. IX, X: Swallows and coughs. Uvula midline. XI: Shrugs shoulders. Turns head against resistance. XII: No tongue deviation Finger -to-nose are intact. Gait with normal base. Romberg: maintains balance, no pronator drift. Normal speech. No facial drooping. PSYCH: Age appropriate behavior. Triage Information Reviewed: Yes Vital Signs: Vital Signs: Temp Pulse Resp BP Pulse Ox 98.1 F 96 18 121/75 100 04/28/18 16:02 04/28/18 16:02 04/28/18 16:02 04/28/18 16:02 04/28/18 16:02 Laboratory Tests 04/28/18 04/28/18 16:47 16:48 POC Urine Color Yellow POC Urine Clarity Clear POC Urine pH 7.5 POC Ur Specif [place] 1.015 POC Urine Protein Negative POC Ur Glucose (UA) Negative POC Urine Ketones Negative POC Urine Blood Negative POC Urine Nitrite Negative POC Urine Bilirubin Negative POC Urine Urobilinogen 0.2 POC U Leukocyte Esteras Negative POC Ur Test Negative Vital Signs Reviewed: Yes Throat Pain/Nasal Course/Dx - Course Course Of Treatment: EKG NSR 73bpm. No ST changes as read by Dr. Sargent. UA and negative. Given her abrupt onset of symptoms that are persisting, her subjective trouble wording finding/speaking, and hx of recent arteriogram with underlying right UE venous insufficiency - I have advised her to be further evaluated in the ED. She was given 25mg of meclizine in the clinic and will have her friend drive her to the ED. She declined ambulance transfer. - Differential Dx/Diagnosis Provider Diagnoses: Dizziness Discharge - Sign-Out/Discharge Documenting (check all that apply): Patient Departure All imaging exams completed and their final reports reviewed: No Studies - Discharge Plan Condition: Stable Disposition: HOME-RECOMMEND TO ED Referrals: Zoey Patel DO [Primary Care Provider] - Additional Instructions: Please go to the ER for further evaluation of your dizziness - Billing Disposition and Condition Condition: STABLE Disposition: Home-Recommend to ED
[2018-04-28 16:06] VITALS: BP 121/75
[2018-04-28] MEDS ORDERED: Meclizine TAB* 12.5 MG PO ONE (16:33)
== END 2018-04-28 16:57 | disposition home health service (06) ==
LOC: UCEAST 15:11
DX: R42 Dizziness and giddiness (principal)
CPT/HCPCS: 81003; 84702; 93005; 99212; A9270-GY; G0463

== ENCOUNTER 2018-04-28 17:12 | Emergency (ER) | payer OTHER ==
[2018-04-28] MEDS ORDERED: DiMENhydriNATE IV* 50 MG/ML VIAL IV PUSH ONE (17:31)
[2018-04-28] MEDS ORDERED: NS 0.9% 1000 ML* 1,000 ML IV ONE (17:31)
[2018-04-28 18:22] LABS: ABS Basophils 0 10^3/ul (0-0.2); ABS Eosinophils 0 10^3/ul (0-0.6); ABS Lymphocytes 1.8 10^3/ul (1.0-4.8); ABS Monocytes 0.8 10^3/ul (0-0.8); ABS Neutrophils 6.8 10^3/ul (1.5-7.7); ABS Nucleated RBC 0 10^3/ul; Eosinophil % 0.2 % (0-6); Hematocrit 38 % (35-47); Mean Corpuscular HGB Conc 32 g/dl (31-36); Mean Corpuscular Hemoglobin 25 pg (27-31); Mean Corpuscular Volume 79 fL (80-97); Mean Platelet Volume 7.9 fL (7.4-10.4); Nucleated Red Blood Cells % 0; Platelet Count 321 10^3/ul (150-450); Red Blood Count 4.73 10^6/ul (4.00-5.40); Red Cell Distribution Width 14 % (10.5-15); White Blood Count 9.5 10^3/ul (3.5-10.8)
[2018-04-28 18:39] LABS: EGFR Non-African American 105.6 (>60)
--- NOTE | 2018-04-28 18:42 | ED ---
Dizziness - HPI Summary HPI Summary: 22-year-old female presents with dizziness today. She states that she has all over muscle aches. She admits to some headache. She admits to sore throat. She states that the lymph nodes in her neck are swollen. She states this feels a little bit dizzy but feels more like that she wants to fall asleep and feels groggy. She denies any change in vision. No fevers. No neck stiffness. No dental pain. No nausea vomiting diarrhea. No chest pain shortness of breath or cough. She was seen at urgent care and given some meclizine which did not seem to help. She states that her symptoms are worse when she tries to move around. She has no medical conditions. she denies any difficulties word finding currently. she is in control. She denies any recent travel. no family history of blood clots. states leg pain is in both legs. no increase edema to the leg. has a history of strept. ekg at shows sinus rhythm. - History Of Current Complaint Chief Complaint: EDGeneral Stated Complaint: DIZZY Time Seen by Provider: 04/28/18 18:14 - Allergies/Home Medications Allergies/Adverse Reactions: Allergies Allergy/AdvReac Type Severity Reaction Status Date / Time No Known Allergies Allergy Verified 04/28/18 17:21 PMH/Surg Hx/FS Hx/Imm Hx Endocrine/Hematology History: Denies: Hx Diabetes Cardiovascular History: Denies: Hx Hypertension, Hx Pacemaker/ICD Respiratory History: Denies: Hx Asthma History: Reports: Other Problems/Disorders - Hx ovarian torsion Sensory History: Denies: Hx Hearing Aid Psychiatric History: Denies: Hx Panic Disorder - Surgical History Surgery Procedure, Year, and Place: OVARIAN CYST REMOVAL BILATERALLY,WISDOM TEETH Infectious Disease History: No Infectious Disease History: Denies: Traveled Outside the [place] in Last 30 Days - Family History Known Family History: Negative: Cardiac Disease, Hypertension, Diabetes - Social History Alcohol Use: Weekly Hx Substance Use: Yes Substance Use Type: Reports: None Substance Use Comment - Amount & Last Used: occasional Hx Tobacco Use: No Smoking Status (MU): Never Smoked Tobacco Review of Systems Positive: Fatigue. Negative: Fever Positive: Sore Throat Negative: Chest Pain Negative: Shortness Of Breath, Cough Negative: Abdominal Pain Positive: Myalgia - diffuse Positive: Headache All Other Systems Reviewed And Are Negative: Yes Physical Exam Triage Information Reviewed: Yes Vital Signs On Initial Exam: Initial Vitals Temp Pulse Resp BP Pulse Ox 98.0 F 80 19 139/75 100 04/28/18 17:17 04/28/18 17:17 04/28/18 17:17 04/28/18 17:17 04/28/18 17:17 Vital Signs Reviewed: Yes Appearance: Positive: Well-Appearing Skin: Positive: Warm, Dry Head/Face: Positive: Normal Head/Face Inspection Eyes: Positive: Normal, EOMI, RASHEL, Conjunctiva Clear ENT: Positive: Normal ENT inspection, Pharynx normal, TMs normal Neck: Positive: Supple, Tenderness @ - cervical lymph nodes, Enlarged Nodes @ - cervical lymph nodes Respiratory/Lung Sounds: Positive: Clear to Auscultation, Breath Sounds Present Cardiovascular: Positive: Normal, RRR Abdomen Description: Positive: Nontender, Soft Bowel Sounds: Positive: Present Musculoskeletal: Positive: Normal, Other - neg homans, nontender leg, good pulses. Negative: Edema Left, Edema Right Neurological: Positive: Normal Psychiatric: Positive: Normal Diagnostics - Vital Signs Vital Signs Temp Pulse Resp BP Pulse Ox 04/28/18 17:17 98.0 F 80 19 139/75 100 - Laboratory Lab Results: Lab Results 04/28/18 04/28/18 04/28/18 Range/Units 17:29 18:04 18:04 WBC 9.5 (3.5-10.8) 10^3/ul RBC 4.73 (4.00-5.40) 10^6/ul Hgb 12.0 (12.0-16.0) g/dl Hct 38 (35-47) % MCV 79 L (80-97) fL MCH 25 L (27-31) pg MCHC 32 (31-36) g/dl RDW 14 (10.5-15) % Plt Count 321 (150-450) 10^3/ul MPV 7.9 (7.4-10.4) fL Neut % (Auto) 72.3 (38-83) % Lymph % (Auto) 19.0 L (25-47) % [place] % (Auto) 8.1 H (0-7) % Eos % (Auto) 0.2 (0-6) % Baso % (Auto) 0.4 (0-2) % Absolute Neuts (auto) 6.8 (1.5-7.7) 10^3/ul Absolute Lymphs (auto) 1.8 (1.0-4.8) 10^3/ul Absolute Monos (auto) 0.8 (0-0.8) 10^3/ul Absolute Eos (auto) 0 (0-0.6) 10^3/ul Absolute Basos (auto) 0 (0-0.2) 10^3/ul Absolute Nucleated RBC 0 10^3/ul Nucleated RBC % 0 Sodium 139 (135-145) mmol/L Potassium 3.5 (3.5-5.0) mmol/L Chloride 104 (101-111) mmol/L Carbon Dioxide 26 (22-32) mmol/L Anion Gap 9 (2-11) mmol/L BUN 7 (6-24) mg/dL Creatinine 0.70 (0.51-0.95) mg/dL Est GFR ( Amer) 127.8 (>60) Est GFR (Non-Af Amer) 105.6 (>60) BUN/Creatinine Ratio 10.0 (8-20) Glucose 82 (70-100) mg/dL POC Glucose (mg/dL) 82 (70-100) mg/dL Calcium 9.3 (8.6-10.3) mg/dL Total Bilirubin 0.30 (0.2-1.0) mg/dL AST 16 (13-39) U/L ALT 13 (7-52) U/L Alkaline Phosphatase 60 (34-104) U/L C-Reactive Protein 31.07 H (<8.01) mg/L Total Protein 7.2 (6.4-8.9) g/dL Albumin 4.2 (3.2-5.2) g/dL Globulin 3.0 (2-4) g/dL Albumin/Globulin Ratio 1.4 (1-3) Monoscreen Pending Result Diagrams: 04/28/18 18:04 04/28/18 18:04 Lab Statement: Any lab studies that have been ordered have been reviewed, and results considered in the medical decision making process. Re-Evaluation - Re-Evaluation First Eval Re-Evaluation Time: 19:56 Change: Improved Comment: feeling better after fluids, just feels tired Dizzy Course/Dx - Course Course Of Treatment: 22-year-old female presents with dizziness today. She states that she has all over muscle aches. She admits to some headache. She admits to sore throat. She states that the lymph nodes in her neck are swollen. She states this feels a little bit dizzy but feels more like that she wants to fall asleep and feels groggy. She denies any change in vision. No fevers. No neck stiffness. No dental pain. No nausea vomiting diarrhea. No chest pain shortness of breath or cough. She was seen at urgent care and given some meclizine which did not seem to help. She states that her symptoms are worse when she tries to move around. She has no medical conditions. on exam normal neuro exam. pharynx erythematous. uvula midline. soft palate symmetric. NIH zero. lymph node swelling noted. likely symptoms as due to the start of a viral illness. leg pain disturbution as is diffuse bilaterally and includes feet is not consistent with DVT. patient appears tired on exam. labs wbc normal. mono neg. crp elevated which all supports a viral illness, explained should take tyenlol or ibuprofen for symptoms. feeling better after fluids. speech is still normal after reevaluation at 2 hours. discussed that should take tyenlol or ibuprofen for sore throat. told to follow up with [facility]. patient understand and agrees with plan. - Diagnoses Differential Diagnosis/HQI/PQRI: Benign Paroxysmal Positional Vertigo, Hypovolemia, Metabolic Abnormality Provider Diagnoses: Dizziness, Pharyngitis Discharge - Sign-Out/Discharge Documenting (check all that apply): Patient Departure - Discharge Plan Condition: Good Disposition: HOME Patient Education Materials: Pharyngitis (ED) Referrals: Zoey Patel DO [Primary Care Provider] - Additional Instructions: Take Tylenol or ibuprofen for pain every 6 hours drink plenty of fluids Can use cough drops or products such as cloraseptic spray Return to ED if develop fever does not respond to Tylenol or ibuprofen, inability to swallow, or difficulty breathing or any new or worsening symptoms - Billing Disposition and Condition Condition: GOOD Disposition: Home
[2018-04-28 20:10] VITALS: BP 0/0
== END 2018-04-28 20:05 | disposition home or self-care (01) ==
LOC: ED 17:12
DX: R42 Dizziness and giddiness (principal); J02.9 Acute pharyngitis, unspecified
CPT/HCPCS: 36415; 80053; 85025; 86140; 86308; 87651; 96361; 96374; 99283; J1240